=== PATIENT | female | born 1970 | race Two or more races ===

== ENCOUNTER 2020-02-24 10:27 | Outpatient (CLI) | payer OTHER | END 2020-02-24 23:59 | disposition home or self-care (01) | LOC: LAB 10:27 | PROVIDERS: ATTEND Specialist | DX: Z01.812 Encounter for preprocedural laboratory examination (principal); Z20.828 Contact with and (suspected) exposure to other viral communicable diseases | CPT/HCPCS: 87426; C9803 ==

== ENCOUNTER 2020-02-29 05:40 | Day surgery (SDC) | payer OTHER ==
[2020-02-29] VITALS (8 sets, daily range): BP systolic 104–114; BP diastolic 63–76
[~2020-02-29] VITALS: Ht 160 cm; Wt 91.6 kg
--- NOTE | 2020-02-29 05:30 | NUR ---
DAY SX PATIENT ARRIVED SHOWN TO ROOM. ADMISSION ASSESSMENT PERFORMED. PATIENT ORIENTED TO ROOM. TO BE PREPARED FOR RIGHT SHOULDER ARTHROSCOPY DEBRIDEMENT ACROMIOPLASY WITH DR. TEE.
[2020-02-29] MEDS ORDERED: CEFAZOLIN 1 GM in IV D5W 50 ML IV SCH (06:00)
--- NOTE | 2020-02-29 06:00 | NUR ---
rn ms opening notes received patient ambulatory, alert and oriented x4, respirations even and unlabored with equal rise and fall of chest, iv site inserted to right ac #20 g intact and patent, belongings list done and with patient, consents signed, all needs attended at this time, will continue to monitor and attend to needs.
--- NOTE | 2020-02-29 06:45 | NUR ---
rn ms notes patient left unit with or staff in stable condition with chart.
[2020-02-29] MEDS ORDERED: ANESTHESIA TRAY IN PYXIS 1 EA TRAY MC ONE (06:50)
[2020-02-29] MEDS ORDERED: EPINEPHRINE (1:1000) 1 MG/ML AMPUL ONE (06:50)
--- NOTE | 2020-02-29 06:50 | NUR ---
PT ESCORTED OFF UNIT TO THE OR. PT SIGNED CONSENT FOR PROCEDURE UNDER [facility] HEADING PER [employer] REQUEST.
[2020-02-29] MEDS ORDERED: MIDAZOLAM HCL 2 MG/2ML VIAL ONE (06:53)
[2020-02-29] MEDS ORDERED: FENTANYL PF 100MCG/2ML AMPUL ONE (06:53)
[2020-02-29] MEDS ORDERED: SCOPOLAMINE HBR 1 EA PATCH.TD72 TD ONE (06:54)
[2020-02-29 07:21] LABS: BASOPHILS % (AUTO) 0.7 % (0.0-2.0); EOSINOPHILS % (AUTO) 3.7 % (0.0-6.0); HEMATOCRIT 41 % (33-45); HEMOGLOBIN 13.6 g/dL (11.5-14.8); LYMPHOCYTES # (AUTO) 2.2 /CMM (0.8-4.8); LYMPHOCYTES % (AUTO) 33.5 % (20.0-44.0); MEAN CORPUSCULAR HGB CONC 33 g/dl (31.0-36.0); MEAN CORPUSCULAR VOLUME 93 fL (82-100); MONOCYTES # (AUTO) 0.5 /CMM (0.1-1.30); MONOCYTES % (AUTO) 8.2 % (2.0-12.0); NEUTROPHILS # (AUTO) 3.5 /CMM (1.8-8.9); NEUTROPHILS % (AUTO) 53.9 % (43.0-81.0); PLATELET COUNT (AUTO) 292 /CMM (150-450); RED BLOOD CELL COUNT(AUTO) 4.42 MIL/uL (4.0-5.2); WHITE BLOOD COUNT (AUTO) 6.5 K/uL (4.3-11.0)
--- NOTE | 2020-02-29 07:23 | NUR ---
RN OPENING NOTES RECEIVED REPORT FROM NIGHT NURSE GRZEGORZ THAT PT IS IN THE O.R FOR FOR LEFT SHOULDER SURGERY.
[2020-02-29 07:35] LABS: CALCIUM, SERUM 8.3 mg/dL (8.5-10.1); CREATININE 0.7 mg/dL (0.6-1.3); POTASSIUM 3.5 mmol/L (3.5-5.1)
[2020-02-29 07:50] LABS: ALBUMIN 3.7 g/dL (3.4-5.0); BILIRUBIN,TOTAL 0.4 mg/dL (0.2-1.0); TOTAL PROTEIN, SERUM 7.4 g/dL (6.4-8.2)
[2020-02-29] MEDS ORDERED: BUPIVACAINE 0.5 % PF 150 MG/30 ML VIAL ONE (08:01)
[2020-02-29] MEDS ORDERED: methylPREDNISolone ACETATE 80 MG/ML VIAL ONE (08:02)
--- NOTE | 2020-02-29 09:23 | NUR ---
RN NOTES PT RETURNED TO UNIT VIA HER BED ACCOMPANIED BY O.R. NURSE AT 0915 S/P LEFT SHOULDER ARTHROSCOPY, ACROMIOPLASTY, DAVID PROCEDURE, ROTATOR CUFF REPAIR. A/O X4. ABLE TO MAKE NEEDS KNOWN, NO C/O PAIN AT THIS TIME. V/S TAKEN: BP 114/63, P 70, R 18. T 97.8 AND SP02 96% ON ROOM AIR. PT WITH SLING ON LEFT SHOULDER IN PLACE AND ABLE TO MOVE FINGERS. PIV ON RAC G#20 INTACT AND PATENT WITH NO REDNESS OR S/S OF INFILTRATION AT SITE. BED PLACED ON LOWEST LOCKED POSITION WIT SR UP X2. WILL CONTINUE TO MONITOR PT ACCORDINGLY.
[2020-02-29] MEDS ORDERED: HYDROCODONE/APAP 5/325MG TABLET PO PRN ×2 (10:30)
--- NOTE | 2020-02-29 13:20 | NUR ---
CRTT NOTES PATIENT DISCHARGED TO HOME TODAY IN STABLE CONDITION. S/P LEFT SHOULDER ARTHROSCOPY, ACROMIOPLASTY, DAVID PROCEDURE, ROTATOR CUFF REPAIR. PATIENT IS A/OX4, NO ACUTE DISTRESS, NO COMPLAINT OF PAIN. BREATHING EVEN AND UNLABORED ON ROOM AIR. VS STABLE. WITH SLING ON LEFT ARM KEPT IN PLACE, DRESSING IS C/D/I. ABLE TO VOID X1. DISCHARGE INSTRUCTIONS AND EDUCATION PROVIDED TO PATIENT AND VERBALIZED UNDERSTANDING. PATIENT BELONGING ACCOUNTED FOR AND FORM SIGNED. PERIPHERAL IV LINE REMOVED, NO BLEEDING, DRESSING INTACT. NAME ARMBAND REMOVED. ASSISTED BY ARNIE MORALES TO FRONT LOBBY VIA WHEELCHAIR AT 1145. DAUGHTER WAITING AT THE LOBBY.
== END 2020-02-29 18:00 | disposition home or self-care (01) ==
LOC: DS 05:40 → MED 05:41 → UNDOADMIN 05:41 → UNDODISIN 12:15 → DS 18:00
PROVIDERS: ATTEND Specialist
DX: M75.42 Impingement syndrome of left shoulder (principal); M65.812 Other synovitis and tenosynovitis, left shoulder
CPT/HCPCS: 29824; 29826; 36415; 80053; 85025; 85730; 86850; 87081; A4217; A4565; J0171; J1040; J2250; J3490; G0378; J3010

== ENCOUNTER 2021-03-21 06:41 | Outpatient (CLI) | payer OTHER | END 2021-03-21 23:59 | disposition home or self-care (01) | LOC: LAB 06:41 | PROVIDERS: ATTEND Specialist | DX: Z01.812 Encounter for preprocedural laboratory examination (principal); Z20.822 Contact with and (suspected) exposure to COVID-19 | CPT/HCPCS: C9803; U0003 ==

== ENCOUNTER 2021-03-27 07:21 | Day surgery (SDC) | payer OTHER ==
[2021-03-27] MEDS ORDERED: BUPIVACAINE 0.25% 75 MG/30 ML VIAL ONE (08:59)
== END 2021-03-27 14:05 | disposition home or self-care (01) ==
LOC: DS 07:21
PROVIDERS: ATTEND Specialist
DX: G56.02 Carpal tunnel syndrome, left upper limb (principal); I10 Essential (primary) hypertension; Z98.890 Other specified postprocedural states; Z79.899 Other long term (current) drug therapy
CPT/HCPCS: 64721; 84703; A6402; J0690; J1100; J1885; J2405; J2704; J3490 ×2; J7030